=== PATIENT | male | born 1985 | race Two or more races ===

== ENCOUNTER 2017-11-04 17:17 | Emergency (ER) | payer SELFPAY ==
[~2017-11-04] VITALS: Ht 172.7 cm; Wt 80.0 kg
[2017-11-04 17:45] VITALS: BP 136/77; PULSE 84; RESP 18; TEMP 99.4; O2SAT 99
== END 2017-11-04 19:21 | disposition left against medical advice (07) ==
LOC: NED 17:17
DX: R04.2 Hemoptysis (principal); Z53.21 Procedure and treatment not carried out due to patient leaving prior to being seen by health care provider
CPT/HCPCS: 99281